=== PATIENT | female | born 1970 | race Caucasian/White ===

== ENCOUNTER 2020-10-25 13:28 | Emergency (ER) | payer BC ==
[~2020-10-25 13:28] MED LIST: OMNIPOD DASH P1 EACH MC
[2020-10-25] MEDS ORDERED: NORCO 5-325 TA1 EACH PO (15:33)
== END 2020-10-25 16:17 | disposition home or self-care (01) ==
LOC: ER1 13:28
DX: S82.892A Other fracture of left lower leg, initial encounter for closed fracture (principal); E11.9 Type 2 diabetes mellitus without complications; X50.1XXA Overexertion from prolonged static or awkward postures, initial encounter; Y92.009 Unspecified place in unspecified non-institutional (private) residence as the place of occurrence of the external cause; Y93.K1 Activity, walking an animal
CPT/HCPCS: 29515; 73610; 99283

== ENCOUNTER 2020-10-29 12:49 | Emergency (ER) | payer BC ==
[~2020-10-29] VITALS: Ht 172.7 cm; Wt 77.1 kg
[~2020-10-29 12:49] MED LIST changes: +NORCO 5-325 TA1 EACH PO
== END 2020-10-29 17:18 | disposition home or self-care (01) ==
LOC: ER1 12:49
DX: U07.1 COVID-19 (principal); E10.9 Type 1 diabetes mellitus without complications
CPT/HCPCS: 99283; M0239

== ENCOUNTER → 2021-01-31 | Outpatient (CLI) | payer BC | LOC: EXRD 08:46 | DX: Z78.0 Asymptomatic menopausal state (principal) | CPT/HCPCS: 77080 ==

== ENCOUNTER 2021-11-07 10:51 | Emergency (ER) | payer BC | END 2021-11-07 13:08 | disposition home or self-care (01) | LOC: ER1 10:51 | DX: U07.1 COVID-19 (principal); E10.9 Type 1 diabetes mellitus without complications; F17.200 Nicotine dependence, unspecified, uncomplicated | CPT/HCPCS: 0240U; 71045; 87081; 87880; 99283 ==

== ENCOUNTER 2022-01-10 18:24 | Emergency (ER) | payer BC ==
[2022-01-10] MEDS ORDERED: BACTRIM DS TAB1 EACH PO (20:57)
== END 2022-01-10 21:06 | disposition home or self-care (01) ==
LOC: ER1 18:24
DX: L02.416 Cutaneous abscess of left lower limb (principal); L03.116 Cellulitis of left lower limb; E10.9 Type 1 diabetes mellitus without complications
CPT/HCPCS: 10060; 99283